=== PATIENT | female | born 1955 | race Caucasian/White ===

== ENCOUNTER 2018-02-08 08:14 | Day surgery (SDC) | payer BC ==
--- NOTE | 2018-02-06 13:56 | HP ---
AMENDED REPORT NOW INCLUDES COSIGNER DESIGNATION - ESIGNED BEFORE ADJUSTMENT PREOPERATIVE HISTORY AND PHYSICAL: DATE OF ADMISSION/SURGERY: 02/08/18 DATE OF OFFICE VISIT/ENCOUNTER: 01/23/18 ATTENDING SURGEON: Agatha Hendricks MD * (DICTATED BY FERDINAND MOSLEY) PROCEDURE: Left middle finger trigger finger release. CHIEF COMPLAINT: Left middle finger triggering. HISTORY OF PRESENT ILLNESS: This is a 62-year-old female, who has had problems with catching and triggering in her left middle finger since August of 2017. She denies any injury to this finger. She has received a cortisone injection for this problem, which was helpful for a period of time; however, the triggering has returned and she is interested in surgical intervention at this point. PAST MEDICAL HISTORY: 1. Migraine headaches. 2. Hypertension. 3. Restless legs syndrome. PAST SURGICAL HISTORY: 1. Left shoulder. 2. Appendectomy. 3. Bilateral knee arthroscopy. 4. Right hand trigger finger releases. 5. Bilateral cataract removal. CURRENT MEDICATIONS: 1. Acetaminophen 650 mg p.r.n. 2. Aspirin low dose 81 mg daily. 3. Duloxetine HCl 30 mg daily. 4. Gabapentin 300 mg daily. 5. Iron 325 mg once a week. 6. Lorazepam 1 mg p.r.n. flying. 7. Losartan potassium 50 mg daily. 8. Magnesium 400 mg daily. 9. Melatonin 10 mg at bedtime p.r.n. insomnia. 10. Multivitamin daily. 11. Nadolol 40 mg twice daily. 12. Ropinirole HCl 0.5 mg 1 tab at 6 p.m. and 2 tabs q.h.s. 13. Sumatriptan succinate 100 mg half tab twice a day, maximum 2 days a week p.r.n. migraine headaches. 14. Vitamin B12 3000 mcg once daily. 15. Vitamin D3 2000 units daily. ALLERGIES: SULFA ANTIBIOTICS, reaction unknown. FAMILY MEDICAL HISTORY: Diabetes. SOCIAL HISTORY: The patient is retired. She is a former smoker. She quit 35 years ago. She denies recreational drug use. She does drink alcohol on occasion. REVIEW OF SYSTEMS: Negative for general, cephalic, cardiovascular, respiratory , GI, , other musculoskeletal, integumentary, endocrine, neurologic, and hematologic symptoms. Infectious Disease: Negative for MRSA, hepatitis C, HIV. PHYSICAL EXAMINATION GENERAL: Well-developed, well-nourished, 62-year-old female, in no acute distress. VITAL SIGNS: Height 5 feet 8 inches, weight 209 pounds. Pulse rate 68, blood pressure 122/70. HEENT: Normocephalic, atraumatic. Pupils are equal, round, and reactive to light and accommodation. Extraocular movements are intact. Throat is clear. NECK: Supple. No palpable lymph nodes. PULMONARY: Lungs are clear to auscultation bilaterally. No wheezes, rales, or rhonchi. CARDIOVASCULAR: Regular rate and rhythm. S1, S2. No murmurs, rubs, or gallops. No edema. ABDOMEN: Positive bowel sounds. Soft, nontender. NEUROLOGICAL: Alert and oriented x3. Cranial nerves II through XII are intact. Sensation is intact to light touch. MUSCULOSKELETAL: On exam of her left middle finger, she has tenderness to palpation at the A1 lilibeth. She has some stiffness with flexion and extension of the middle finger and cannot squeeze her fist tightly. She lacks a little bit of extension. IMPRESSION: Left middle finger trigger finger. PLAN: The patient is scheduled to undergo a left middle finger trigger finger release with Dr. Hendricks on 02/08/18. She will return to the office 10 days postop for followup and suture removal. A prescription for [place] was e-scribed to the patient's pharmacy for postoperative pain management. FERDINAND MOSLEY [id number]/[facility] #: [id number] [place]
[2018-02-08] MEDS ORDERED: fentaNYL* 50 MCG/ML 2 ML VIAL (100 MCG VIAL) ONE (09:07)
[2018-02-08] MEDS ORDERED: Lidocaine 1% INJ* 10 MG/ML 30 ML SDV ONE (09:36)
[2018-02-08 10:06] VITALS: BP 134/77
--- NOTE | 2018-02-09 05:17 | OP ---
DATE OF OPERATION: 02/08/18 [facility] DATE OF : 51 SURGEON: Agatha Hendricks MD CLEAN ROOM OPERATOR: FERDINAND Zeng ANESTHESIA: Local MAC PRE-OP DIAGNOSIS: Left long finger, trigger finger POST-OP DIAGNOSIS: Left long finger, trigger finger OPERATIVE PROCEDURE: Left long finger trigger release. ESTIMATED BLOOD LOSS: Zero. TOURNIQUET TIME: About 10 minutes. INDICATIONS FOR PROCEDURE: Lillie is a 62-year-old female with triggering and locking of her left long finger. She presents for trigger finger release after failing conservative treatment. DESCRIPTION OF PROCEDURE: The patient was brought to the operating room, was given a sedation anesthetic and a local infiltration 10 cc of 1% plain lidocaine over the A1 lilibeth of the left long finger. The skin of her left hand and forearm was prepped and draped in usual sterile fashion. The hand and forearm were exsanguinated and the tourniquet elevated to 250 mmHg. A transverse incision was made centered over the A1 lilibeth of the left long finger and dissected bluntly through the subcutaneous tissue down to the A1 lilibeth. The lilibeth was incised longitudinally completely releasing the tendons which were in good condition. The wound was irrigated and then the skin edges reapproximated with 4-0 nylon suture. The wound was dressed with Xeroform, 4 x 4 , Webril and an Artie wrap. The patient tolerated the procedure well and was brought to the recovery room in good condition. [id number]/[facility] #: [id number] MTDD
== END 2018-02-08 10:22 | disposition home or self-care (01) ==
LOC: OREAST 08:14
PROVIDERS: ATTEND Orthopaedic Surgery
DX: M65.332 Trigger finger, left middle finger (principal); I10 Essential (primary) hypertension; G25.81 Restless legs syndrome; Z87.891 Personal history of nicotine dependence
CPT/HCPCS: J3010